=== PATIENT | female | born 1950 | race Two or more races ===

== ENCOUNTER 2021-01-21 11:15 | Emergency (ER) | payer OTHER ==
[~2021-01-21] VITALS: Ht 160 cm; Wt 93.0 kg
[~2021-01-21 11:15] MED LIST: ATENOLOL25 MG PO; DURICEF 500 MG CAPSULE PO; INTEGRA PLUS CAPSULE PO; NEURONTIN300 MG PO; OXYC1TAB9 PO; PRAVACHOL10 MG; TRAM1TAB98 PO; ULTRACET PO; VIT B 12; XARELTO 10MG PO
== END 2021-01-21 13:52 | disposition home or self-care (01) ==
LOC: ER 11:15
DX: M54.5 Low back pain (principal)

== ENCOUNTER 2021-01-23 07:03 | Emergency (ER) | payer OTHER ==
[~2021-01-23] VITALS: Ht 160 cm; Wt 93.0 kg
[2021-01-23] MEDS ORDERED: NORFLEX100MG PO (10:51)
[2021-01-23] MEDS ORDERED: KETO10TA2 PO (10:51)
== END 2021-01-23 11:01 | disposition home or self-care (01) ==
LOC: ER 07:03
DX: M54.5 Low back pain (principal)

== ENCOUNTER 2024-10-18 10:17 | Emergency (ER) | payer OTHER ==
[~2024-10-18] VITALS: Ht 157.5 cm; Wt 89.4 kg
[~2024-10-18 10:17] MED LIST changes: +KETO10TA2 PO; +NORFLEX100MG PO
[2024-10-18] MEDS ORDERED: ORPHENADRINE CITRATE 30 MG/ML AMPUL IM ONE (10:45)
[2024-10-18] MEDS ORDERED: KETOROLAC TROMETHAMINE 60 MG VIAL IM ONE ×2 (10:45→11:13)
[2024-10-18] MEDS ORDERED: NORFLEX100MG PO ×2 (10:56→10:59)
[2024-10-18] MEDS ORDERED: IBU600 MG PO ×2 (10:56→10:59)
[2024-10-18] MEDS ORDERED: PEPCID AC10 MG PO ×2 (10:56→10:59)
[2024-10-18] MEDS ORDERED: ORPHENADRINE CITRATE 30 MG/ML AMPUL ONE (11:13)
== END 2024-10-18 11:19 | disposition home or self-care (01) ==
LOC: ER 10:19
DX: M62.838 Other muscle spasm (principal); I10 Essential (primary) hypertension
CPT/HCPCS: 96372; 99282; J1885; J2360